=== PATIENT | female | born 1990 | race Two or more races ===

== ENCOUNTER 2020-12-11 08:28 | Emergency (ER) | payer MEDICAID ==
[~2020-12-11] VITALS: Ht 160 cm; Wt 81.6 kg
[2020-12-11 10:00] LABS: Urine Bacteria NONE SEEN /hpf (None Seen); Urine Blood Negative /uL (Negative); Urine Mucus FEW (None Seen); Urine Specific Gravity 1.023 (1.001-1.035); Urine WBC <1 /hpf (0 - 5)
[2020-12-11 11:26] VITALS: BP 124/72
== END 2020-12-11 11:28 | disposition home or self-care (01) ==
LOC: ER 08:28
DX: S86.912A Strain of unspecified muscle(s) and tendon(s) at lower leg level, left leg, initial encounter (principal); S86.911A Strain of unspecified muscle(s) and tendon(s) at lower leg level, right leg, initial encounter; M79.10 Myalgia, unspecified site; Z90.49 Acquired absence of other specified parts of digestive tract; X58.XXXA Exposure to other specified factors, initial encounter; Y93.89 Activity, other specified; Y92.89 Other specified places as the place of occurrence of the external cause; Y99.8 Other external cause status
CPT/HCPCS: 36415; 81001; 85379

== ENCOUNTER 2024-08-10 08:22 | Emergency (ER) | payer MEDICAID ==
[~2024-08-10] VITALS: Ht 152.4 cm; Wt 83.9 kg
--- NOTE | 2024-08-10 09:17 | ED.PDOC ---
Musculoskeletal HPI Comments 34-year-old female presents with a chief complaint of atraumatic right lower extremity pain x2 days. Pain is located to the posterior thigh and posterior calf in his described as a sore, stiff, aching sensation that is constant. Pain is rated as moderate and has tried [id number] Tylenol with some improvement. Symptoms are aggravated with sitting and laying on the affected side. Also reports same symptoms started on the left lower extremity five days ago. Chief Complaint: Lower Extremity Time Seen by MD: 08:39 Reviewed Notes: Nurses Notes, Medications, Allergies Allergies: Coded Allergies: NO KNOWN ALLERGIES (Unverified , 12/11/20) Information Source: Patient Mode of Arrival: Ambulatory Past Medical History PAST MEDICAL HISTORY: Denies Surgical History: Cholecystectomy, VALET CASHIER History: No Pertinent VALET CASHIER History Family History Family History: Reviewed,noncontributory to illness Social History Smoker: Non-Smoker Alcohol: Denies ETOH Use Drugs: Denies Drug Use Lives In: Home All Other Systems: Reviewed and Negative (Per HPI) Physical Exam General Appearance: No Apparent Distress, Normal HEENT: Normal ENT Inspection, Pharynx Normal, TMs Normal Neck: Full Range of Motion, Non-Tender, Normal, Normal Inspection Respiratory: Chest Non-Tender, Lungs Clear, No Accessory Muscle Use, No Respiratory Distress, Normal Breath Sounds Cardiovascular: No Edema, No JVD, No Murmur, No Gallop, Normal Peripheral Pulses, Regular Rate/Rhythm Breast Exam: Deferred Gastrointestinal: No Organomegaly, Non Tender, No Pulsatile Mass, Normal Bowel Sounds, Soft Genitalia: Deferred Pelvic: Deferred Rectal: Deferred Extremities: No calf tenderness, Normal capillary refill, Normal inspection, Normal range of motion, Non-tender, No pedal edema Musculoskeletal : Apperance: Normal Neurologic: Alert, 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 Was a procedure done?: No Images 1 - No gross abnormality on inspection. No erythema swelling TTP. No TTP to the patella. Full passive and active range of motion of the bilateral lower extremities. Distal neuro sensation intact. DP 2+ bilaterally. Cap refill less than 3 seconds Differential Diagnosis EXT Differential Diagnosis: Cellulitis, Deep Vein Thrombosis, Arthritis, Bursitis, Other X-Ray, Labs, Meds, VS Vital Signs Date Time Temp Pulse Resp B/P (MAP) Pulse Ox O2 Delivery O2 Flow Rate FiO2 08/10/24 09:27 98.3 77 18 117/70 (86) 100 98.3 08/10/24 09:27 77 18 100 Room Air 08/10/24 08:32 98.4 94 18 138/81 (100) 98 98.4 PATIENT: IBRAHIMA SANDSACCT: [id number]: [id number] : 1990 LOC: ER ROOM / BED: / AGE / SEX: 34 / F ADM STATUS: REG ER SERVICE 2 ORDERING PHYSICIAN: LAN MOHAMUD NP PROCEDURE(s): BLDVT - BiLat Lower DVT REASON: calf pains ORDER NUMBER(s): [id number], ACCESSION NUMBER(s): [id number] US BiLat Lower DVT HISTORY: calf pains COMPARISON: None TECHNIQUE: Duplex doppler evaluation of the deep venous system of the lower extremity from the common femoral veins, superficial femoral vein, great saphenous vein, deep femoral vein, popliteal vein, and calf veins, including color doppler and spectral/pulsed waveform analysis, was performed. FINDINGS: Right: - Common femoral vein: Compressible - Deep femoral vein: Compressible - Femoral vein: Compressible - Popliteal vein: Compressible - Posterior tibial vein: Waveforms present - Peroneal vein: Waveforms present - Other: Nothing Left: - Common femoral vein: Compressible - Deep femoral vein: Compressible - Femoral vein: Compressible - Popliteal vein: Compressible - Posterior tibial vein: Waveforms present - Peroneal vein: Waveforms present - Other: Nothing IMPRESSION: No right or left lower extremity deep venous thrombosis. ATED BY: RYAN RUSHING MD DICTATED DATE/TIME: 08/10/241007 SIGNED BY: RYAN RUSHING MD SIGNED DATE/TIME: 08/10/241007 CC: X-Ray, Labs, Meds, VS Comment The patient presents with signs and symptoms concerning for deep venous thrombosis. The differential diagnosis includes but is not limited to: DVT, thrombophlebitis, trauma, venous stasis, peripheral edema, cellulitis. Patients work up was negative for DVT The patient denies having any shortness of breath, dyspnea on exertion. Additionally, the patient was not hypoxic and had no CP, therefore no indication for further chest imaging to evaluate for PE. The patient was overall stable while in the ED. They had normal oxygenation on room air and did not require any supplemental oxygen. Heart rate has remained stable while in the ED. Nontoxic appearing. No lymphangitic spread visible. No fluid pockets or fluctuance concerning for abscess. Low concern for cellulitis or osteomyelitis. No evidence of phlegmasia cerulea or alba dolens. Focal and unilateral nature not consistent with heart failure. Disposition: Discharge. Strict return precautions discussed with the patient with full understanding. Supportive care advised (rest, ice, heat, NSAIDs, stretching exercises) Massage muscles with cold pack or ice for 20 minutes 4 times per day. Usually most useful if there is swelling during the first 48 hours Heating pad on the most painful area for 20 minutes to relieve muscle spasm Sleep and the most comfortable sleeping position (usually on the side with knees bent) Light stretching, no strenuous activity, avoid frequent bending, avoid carrying heavy objects Additional MDM Review of External, Non-ED records: External records reviewed. Discussion with independent historian (EMS, family) history obtained from the patient at bedside Chronic conditions affecting care: none Social determinants of health affecting care: none Consideration of admission (observation or admission): I considered escalation of care to admission for this patient, however given the reassuring workup, the patient is safe for outpatient management. Time of 1ST Reevaluation: 09:16 Reevaluation 1ST: Improved Time of 2ND Reevaluation: 10:16 Reevaluation 2ND: Improved Patient Education/Counseling: Diagnosis, Treatment Family Education/Counseling: Diagnosis, Treatment Departure 1 Departure Time of Disposition: 10:19 Impression: Primary Impression: Leg pain Qualified Codes: M79.604 - Pain in right leg; M79.605 - Pain in left leg Additional Impression: Calf pain Qualified Codes: M79.661 - Pain in right lower leg; M79.662 - Pain in left lower leg Disposition: 01 HOME / SELF CARE / HOMELESS Condition: Fair e-Prescriptions Cyclobenzaprine Hcl (Cyclobenzaprine Hcl) 5 Mg Tab 1 TAB PO QHSP PRN for 10 Days, #10 TAB 0 Refills Prov: LAN MOHAMUD NP 08/10/24 Naproxen (Naproxen) 500 Mg Tab 500 MG PO BIDPC for 7 Days, #14 TAB 0 Refills Prov: LAN MOHAMUD NP 08/10/24 Discharged With: Self Critical Care Note Critical Care Time?: No Stability Stability form required: No Heart Score Heart Score: Heart Score Response (Comments) Value History N/A 0 EKG N/A 0 Age N/A 0 Risk Factors N/A 0 Troponin N/A 0 Total 0 LAN MOHAMUD NP August 10, 2024 09:17
[2024-08-10 09:27] VITALS: BP 117/70; PULSE 77; RESP 18; TEMP 98.3; O2SAT 100
--- NOTE | 2024-08-10 10:10 | DVH ---
US BiLat Lower DVT HISTORY: calf pains COMPARISON: None TECHNIQUE: Duplex doppler evaluation of the deep venous system of the lower extremity from the common femoral veins, superficial femoral vein, great saphenous vein, deep femoral vein, popliteal vein, an d calf veins, including color doppler and spectral/pulsed waveform analysis, was performed. FINDINGS: Right: - Common femoral vein: Compressible - Deep femoral vein: Compressible - Femoral vein: Compressible - Popliteal vein: Compressible - Posterior tibial vein: Waveforms present - Peroneal vein: Waveforms present - Other: Nothing Left: - Common femoral vein: Compressible - Deep femoral vein: Compressible - Femoral vein: Compressible - Popliteal vein: Compressible - Posterior tibial vein: Waveforms present - Peroneal vein: Waveforms present - Other: Nothing IMPRESSION: No right or left lower extremity deep venous thrombosis.
[2024-08-10] MEDS ORDERED: CYCL-837 PO (10:22)
[2024-08-10] MEDS ORDERED: NAPR-746 PO (10:22)
== END 2024-08-10 10:29 | disposition home or self-care (01) ==
LOC: ER 08:22
DX: M79.661 Pain in right lower leg (principal); Z90.49 Acquired absence of other specified parts of digestive tract; Z98.890 Other specified postprocedural states
CPT/HCPCS: 93970